=== PATIENT | female | born 1975 | race Caucasian/White ===

== ENCOUNTER → 2023-05-19 | Day surgery (SDC) | payer BC ==
[~2023-05-19] VITALS: Ht 149.9 cm; Wt 58.5 kg
[~2023-05-19] MED LIST: AMLO10TA80 PO; BUPIVACAINE HCL/PF 0.5% (5MG/ML) 10ML ONE; ESTR1CAP PO; FENTANYL CITRATE/PF 50MCG/ML 2ML VIAL ONE; HYDROCODONE/ACETAMINOPHEN 5/325MG TABLET PO PRN; IBUP-2030 PO; LACTATED RINGERS 1,000 ML IV SCH; MIDAZOLAM HCL 5 MG/5 ML VIAL ONE; PROPOFOL 200MG/20ML VIAL IV ONE
[2023-05-19 12:19] LABS: UCG SCREEN NEGATIVE
== END | disposition home or self-care (01) ==
LOC: OR 10:47
PROVIDERS: ATTEND Student in an Organized Health Care Education/Training Program
DX: M75.01 Adhesive capsulitis of right shoulder (principal); Z79.899 Other long term (current) drug therapy; Z98.890 Other specified postprocedural states
CPT/HCPCS: 23700; 81025; J3010; J3490; J2250; J2704